=== PATIENT | male | born 1980 | race Caucasian/White ===

== ENCOUNTER 2017-05-21 00:28 | Emergency (ER) | payer OTHER ==
[~2017-05-21] VITALS: Ht 175.3 cm; Wt 90.7 kg
[~2017-05-21 00:28] MED LIST: ATIVAN1 MG PO
[2017-05-21] MEDS ORDERED: SULFACETAMIDE 115 M1 INTRAOCULR (00:58)
[2017-05-21] MEDS ORDERED: HYDROCODON-ACE1 EAC7 PO (00:58)
[2017-05-21 01:18] VITALS: BP 135/80
== END 2017-05-21 01:20 | disposition home or self-care (01) ==
LOC: M.ERS 00:28
DX: S05.01XA Injury of conjunctiva and corneal abrasion without foreign body, right eye, initial encounter (principal); W50.4XXA Accidental scratch by another person, initial encounter; Y93.89 Activity, other specified; Y99.8 Other external cause status; Y92.89 Other specified places as the place of occurrence of the external cause